=== PATIENT | female | born 1960 | race Caucasian/White ===

== ENCOUNTER → 2024-05-10 08:31 | Outpatient (CLI) | payer OTHER, SELFPAY ==
--- NOTE | 2024-05-10 08:33 | DI.RAD.S_ITS ---
PROCEDURE: XR FOOT LT 2V INDICATIONS: arthritis, ongoing pain TECHNIQUE: 2 views of the foot were acquired. COMPARISON: None. FINDINGS: Minimal subchondral cyst versus erosion at the medial head of the 1st metatarsal. No adjacent soft tissue calcifications. No acute fracture or dislocation. The Lisfranc interval is preserved on the nonweightbearing view. Small type 1 accessory navicular. Pes cavus alignment on the nonweightbearing view. The joint spaces are preserved. IMPRESSION: 1. No acute fracture or dislocation. 2. 1st metatarsal medial head finding, which may represent early osteoarthritis versus gout. Dictated by: Stan Bryan M.D. on 05/10/2024 at 13:04 Approved by: Stan Bryan M.D. on 05/10/2024 at 13:06
--- NOTE | 2024-05-10 08:33 | DI.RAD.S_ITS ---
PROCEDURE: XR HAND LT 2V INDICATIONS: arthritis, ongoing pain TECHNIQUE: 2 views of the hand(s) acquired. COMPARISON: [facility], CR, XR HAND RT 2V, 05/10/2024, 8:38. FINDINGS: Negative ulnar variance posture with osseous remodeling at the radial aspect of the distal ulna with mild distal radioulnar osteoarthritis. Mild osseous remodeling along the radial lip. Minimal triscaphe and 1st CMC osteoarthritis. No acute fracture or dislocation. The joint spaces are otherwise preserved. No significant joint effusion. No periarticular osteopenia, soft tissue calcifications, or osseous erosions. IMPRESSION: 1. Radiographic findings that can be seen with ulnar impingement syndrome. 2. Mild distal radioulnar and minimal 1st CMC/triscaphe osteoarthritis. Dictated by: Stan Bryan M.D. on 05/10/2024 at 13:00 Approved by: Stan Bryan M.D. on 05/10/2024 at 13:04
--- NOTE | 2024-05-10 08:33 | DI.RAD.S_ITS ---
PROCEDURE: XR HAND RT 2V INDICATIONS: arthritis, ongoing pain TECHNIQUE: 2 views of the hand(s) acquired. COMPARISON: [facility], CR, XR HAND LT 2V, 05/10/2024, 8:38. FINDINGS: No acute fracture or dislocation. Mild 1st CMC and triscaphe osteoarthritis. Mild, scattered PIP/DIP joint osteoarthritis, most conspicuous at the 3rd PIP and 5th DIP joints. No osseous erosions. No periarticular soft tissue calcifications. IMPRESSION: Mild osteoarthritis. Dictated by: Stan Bryan M.D. on 05/10/2024 at 13:08 Approved by: Stan Bryan M.D. on 05/10/2024 at 13:10
--- NOTE | 2024-05-10 08:33 | DI.RAD.S_ITS ---
PROCEDURE: XR FOOT RT 2V INDICATIONS: arthritis, ongoing pain TECHNIQUE: 2 views of the foot were acquired. COMPARISON: None. FINDINGS: No acute fracture or dislocation. Mild hallux valgus with lateralization of the hallux sesamoids. Mild 1st CMC and hallux inter sesamoid osteoarthritis. The Lisfranc interval is preserved on the nonweightbearing view. Pes cavus alignment on the nonweightbearing view. The joint spaces are otherwise preserved. IMPRESSION: Mild hallux valgus with mild 1st MTP and hallux inter sesamoid osteoarthritis. Dictated by: Stan Bryan M.D. on 05/10/2024 at 13:06 Approved by: Stan Bryan M.D. on 05/10/2024 at 13:08
== END ==
PROVIDERS: PCP Family Medicine; Referring Provider Family Medicine; Visit Provider Family Medicine
DX: M18.11 Unilateral primary osteoarthritis of first carpometacarpal joint, right hand (principal); M19.041 Primary osteoarthritis, right hand; M19.032 Primary osteoarthritis, left wrist; M19.031 Primary osteoarthritis, right wrist; M20.11 Hallux valgus (acquired), right foot; M19.071 Primary osteoarthritis, right ankle and foot
CPT/HCPCS: 73120; 73620

== ENCOUNTER 2024-11-08 09:37 | Day surgery (SDC) | payer OTHER, SELFPAY ==
[2024-11-08 09:55] VITALS: BP 139/82; PULSE 51; RESP 17; TEMP 36.6; O2SAT 100
[2024-11-08] MEDS: LACTATED RINGERS 1,000 ML 42 ML IV (10:05)
--- NOTE | 2024-11-08 10:11 | PM.HP.IH.1 ---
History of Present Illness History of Present Illness Date Patient Seen: 11/08/24 Time Patient Seen: 10:00 Chief complaint: SDC Narrative: 64-year-old female with a history of 2 prior colonoscopies. She does not remember when the most recent 1 was. She does recall that a few small polyps were removed. These were benign. She presents for screening colonoscopy. [facility] Social History Smoking Status: Never smoker Meds Home Medications and Allergies Home Medications ?Medication ?Instructions ?Recorded ?Confirmed ?Type progesterone micronized 100 mg 100 mg PO QAM #30 caps 04/01/24 11/08/24 Rx capsule estradiol 0.01% (0.1 mg/gram) 1 g vaginal 2XW #42.5 grams 06/14/24 11/08/24 Rx vaginal cream Allergies Allergy/AdvReac Type Severity Reaction Status Date / Time amoxicillin (From Augmentin) Allergy Intermediate Hives Verified 11/08/24 09:48 clavulanic acid (From Allergy Intermediate Hives Verified 11/08/24 09:48 Augmentin) Review of Systems Review of Systems Narrative: Comprehensive review of systems negative to direct questioning with the exception of the previously mentioned chronic conditions. Exam Vital Signs (past 8 hours): - 11/08/24 09:55 Temperature 97.9 F Pulse Rate 51 L Respiratory Rate 17 Blood Pressure 139/82 Pulse Oximetry 100 Oxygen Delivery Method Room Air Oxygen Delivery Method Room Air Narrative Exam Narrative: Head is normocephalic and atraumatic. Neck is supple. Back is without CVA or spinous process tenderness. Lungs are clear to auscultation. Chest is symmetric nontender with normal inspiratory and expiratory excursion. Heart has a regular rate and rhythm with no murmur or gallop. Abdomen is soft nontender with normal bowel sounds. Neurological exam is grossly nonfocal. Skin is clear and there is no adenopathy. Extremities manifests full range of motion. Assessment & Plan Assessment and plan (1) History of colon polyps: Status: Acute Plan I have recommended colonoscopy. Alternatives, risks and benefits were discussed in detail. Questions were answered. The patient desires to proceed as I have outlined. We will accommodate her at this time. Time-Based Coding :: [TOTAL MINUTES] spent with patient and on the chart (including review of chart, obtaining history, exam, reviewing outside data, placing orders, documenting exam and treatment plan, and counseling patient) on [DATE]. [employer] Material Document charge(s): Yes
[2024-11-08 10:47] VITALS: BP 100/63; PULSE 54; RESP 13; TEMP 36.4; O2SAT 97
--- NOTE | 2024-11-08 10:47 | PM.OP.ENDO ---
Operative Date/Time/Diagnoses Date of procedure: 11/08/24 Time of procedure: 10:15 Pre-op diagnosis: History of polyps Post-op diagnosis: same Procedure & Clinicians Study performed: Colonoscopy Same procedure as scheduled: Yes Indications: History of polyps Surgeon: Shashank Faulkner Procedure Notes Procedure in detail: After obtaining informed consent properly identifying the patient the patient was transported to the endo suite. IV sedation was administered and the patient was rolled to the left lateral decubitus position. When an adequate level had been attained, a 2 m flexible fiberoptic colonoscope was passed transanally into the rectum and clear around the cecum under direct endoscopic vision. Prep was adequate. Exam was performed retrograde. Cecum was positively identified at the confluence tenia coli and ileocecal valve. Cecum and ascending colon were normal in appearance. There were no polyps, diverticuli, adenomata or arteriovenous malformations. Hepatic flexure transverse colon and splenic flexures were similarly without evidence of mucosal abnormality. Descending colon was normal in appearance. The sigmoid colon was tortuous. No diverticuli were noted. There were no polyps or ulcerations. The rectum was normal as the scope was withdrawn. The patient tolerated the procedure well and was transported to the recovery room in stable condition. Scope withdrawal time: 1044 Findings: other findings (Normal colon) Specimen(s): none sent Complications: none Impression: Normal colon Post-procedure Recommendations: Colonscopy in 5 years Plan for aftercare: Discharge to home when awake and alert Follow up: as needed Disposition: PACU
[2024-11-08 10:53] VITALS: BP 100/64; PULSE 51; RESP 12; O2SAT 98
[2024-11-08 11:10] VITALS: BP 122/81; PULSE 54; RESP 16; TEMP 36.6; O2SAT 98
== END 2024-11-08 11:19 | disposition home or self-care (01) ==
PROVIDERS: PCP Family Medicine; Referring Provider Surgery; Visit Provider Surgery
PROC: 0DJD8ZZ Inspection of Lower Intestinal Tract, Via Natural or Artificial Opening Endoscopic (ICD-10-PCS; CPT 45378; principal; 2024-11-08 10:45)
DX: Z12.11 Encounter for screening for malignant neoplasm of colon (principal); Z86.0100 Personal history of colon polyps, unspecified
CPT/HCPCS: G0105; 45378; J2704